=== PATIENT | male | born 1995 | race African-American/Black ===

== ENCOUNTER 2021-03-07 10:55 | Emergency (ER) | payer OTHER ==
[2021-03-07 11:32] VITALS: BP 112/73
[2021-03-07] MEDS ORDERED: TETANUS,DIPH,PERTUSS(ACELL) VACCINE 0.5 ML SYRINGE IM ONE (12:21)
[2021-03-07] MEDS ORDERED: NEOMY 3.5 MG/BACIT 400 UNITS/POLY B 5000 UNITS/GM OINT PACKET TP ONE (12:21)
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
== END 2021-03-07 14:47 | disposition home or self-care (01) ==
LOC: ED 10:55
DX: S01.112A Laceration without foreign body of left eyelid and periocular area, initial encounter (principal); S02.85XA Fracture of orbit, unspecified, initial encounter for closed fracture; V49.49XA Driver injured in collision with other motor vehicles in traffic accident, initial encounter; Y93.89 Activity, other specified; Y92.89 Other specified places as the place of occurrence of the external cause; Y99.8 Other external cause status
CPT/HCPCS: 12011; 70486; 90471; 99283; A6250

== ENCOUNTER 2021-03-12 10:32 | Emergency (ER) | payer OTHER ==
[2021-03-12 10:36] VITALS: BP 116/82
--- NOTE | 2021-03-12 11:06 | Emergency Department Report ---
Suture/Staple Removal - HPI Chief Complaint: Laceration/Recheck/Suture Stated Complaint: suture removal rt eye Time Seen by Provider: 03/12/21 10:39 When Sutures or [place] Placed: 5-7 Days Ago Wound Location: Right eyelid area ED Review of Systems ROS: Stated complaint: suture removal rt eye Other details as noted in HPI Comment: All other systems reviewed and negative Constitutional: denies: chills, fever Eyes: denies: eye pain, eye discharge, vision change ENT: denies: ear pain, throat pain Respiratory: denies: cough, shortness of breath, wheezing Cardiovascular: denies: chest pain, palpitations, dyspnea on exertion, edema, syncope, paroxysmal nocturnal dyspnea Gastrointestinal: denies: abdominal pain, nausea, vomiting, diarrhea, constipation, hematemesis, melena, hematochezia Genitourinary: denies: urgency, dysuria Skin: other (laceration) Neurological: denies: headache, weakness, numbness, paresthesias, confusion, abnormal gait, vertigo Psychiatric: denies: anxiety, depression, auditory hallucinations, visual hallucinations, homicidal thoughts, suicidal thoughts Hematological/Lymphatic: denies: easy bleeding, easy bruising, swollen glands ED Past Medical Hx - Past Medical History Previous Medical History?: No - Surgical History Past Surgical History?: No - Medications Home Medications: Home Medications Medication Instructions Recorded Confirmed Last Taken Type Acetaminophen/Codeine [Tylenol 1 tab PO Q6H PRN #15 tab 03/07/21 Unknown Rx /Codeine # 3 tab] Suture Removal Exam - Exam General: Vital signs noted. No distress. Alert and acting appropriately. Wound: Yes Tenderness (mild), No Pathologic Erythema, No Drainage, No Pus, No Wound Dehiscence Other Systems: All other systems reviewed and are unremarkable. ED Course Vital Signs 03/12/21 10:35 Temperature 97.5 F L Pulse Rate 92 H Respiratory 18 Rate Blood Pressure 116/82 O2 Sat by Pulse 97 Oximetry - Procedure Description Procedures done: Suture removal: location - right eyelid area. All sutures removed. Wound healing well without any signs of infection. Critical care attestation.: If time is entered above; I have spent that time in minutes in the direct care of this critically ill patient, excluding procedure time. ED Disposition Clinical Impression: Visit for suture removal Disposition: 01 HOME / SELF CARE / HOMELESS Is pt being admited?: No Does the pt Need Aspirin: No Condition: Stable Instructions: Wound Closure Removal, Care After Additional Instructions: I recommend that he continue to keep the area clean, with soap and water and after you clean and dry it well and apply thin layer of Neosporin. I recommend doing that for another 5 days. Recommend that you keep your appointment with your maxillofacial surgeon at [place] for follow-up on your orbital fracture. Return to the ER if anything changes or worsens in any way. Referrals: PRIMARY CARE, [Referring] - 3-5 Days Time of Disposition: 11:11
== END 2021-03-12 11:40 | disposition home or self-care (01) ==
LOC: ED 10:32
DX: S01.111D Laceration without foreign body of right eyelid and periocular area, subsequent encounter (principal); Z48.02 Encounter for removal of sutures